=== PATIENT | male | born 1955 | race Caucasian/White ===

== ENCOUNTER 2016-07-30 22:10 | Emergency (ER) | payer BC ==
[~2016-07-30] VITALS: Ht 188 cm; Wt 138.6 kg
[~2016-07-30 22:10] MED LIST: ANDROGEL5 GM TD; Ascorbic Acid,Ester- PO; COUMADIN,JANTOVE1 MG PO; FEOSOL325 MG PO; FOLVITE1 MG PO; LIDODERM 5% P1 PATCH TP; OXY IR; OXYCONTIN10 MG PO; Prozac PO; THERAGRAN1 TABLET PO; Tylenol Regular Stre PO
[2016-07-30] MEDS ORDERED: OXYCODONE HCL10 MG PO (23:33)
[2016-07-30 23:42] VITALS: BP 134/75
== END 2016-07-30 23:43 | disposition home or self-care (01) ==
LOC: EME 22:10
DX: S20.211A Contusion of right front wall of thorax, initial encounter (principal); W10.1XXA Fall (on)(from) sidewalk curb, initial encounter; Y92.480 Sidewalk as the place of occurrence of the external cause; J45.909 Unspecified asthma, uncomplicated; E11.9 Type 2 diabetes mellitus without complications; I10 Essential (primary) hypertension; Z96.651 Presence of right artificial knee joint; F17.200 Nicotine dependence, unspecified, uncomplicated
CPT/HCPCS: 71101; 93005; 99281; 99283

== ENCOUNTER 2016-11-13 18:16 | Inpatient (IN) | payer BC ==
[~2016-11-13] VITALS: Ht 188 cm; Wt 137.1 kg
[~2016-11-13 18:16] MED LIST changes: +OXYCODONE HCL10 MG PO
[2016-11-13 18:51] LABS: HEMATOCRIT 42.9 % (38.0-50.0); MCHC 34.7 G/DL (30.0-36.0); MCV 92.3 FL (86-99); MEAN PLAT.VOLUME 10.3 uM^3 (9.0-12.4); PLATELET COUNT 280 K/uL (156-360); RBC DIS.WIDTH-CV 12.2 % (11.8-14.6); RED BLOOD COUNT 4.65 M/uL (4.00-5.50); WHITE BLOOD COUNT 12.7 K/uL (4.1-10.2)
[2016-11-13 19:05] LABS: CHLORIDE 100 mEq/L (99-109); POTASSIUM 4.5 mEq/L (3.7-5.4); SODIUM 134 mEq/L (136-147)
[2016-11-13 19:08] LABS: ANION GAP 14 MEQ/L (2-14)
[2016-11-13 19:10] LABS: GFR ESTIMATE (CALCULATED) 51 mL/min/
[2016-11-13 19:11] LABS: UREA NITROGEN (BUN) 16 mg/dL (9-23)
[2016-11-13 19:15] LABS: TROP-I INTERPRETATION NEGATIVE; TROPONIN-I 0.02 ng/mL (0.0-0.30)
[2016-11-13 19:17] LABS: GLUCOSE 615 mg/dL (70-99)
[2016-11-13] MEDS ORDERED: MORPHINE SULFAT30 M2 PO (21:01)
[2016-11-13] MEDS ORDERED: LAMICTAL200 MG PO (21:02)
[2016-11-13] MEDS ORDERED: METOPROLOL SUCC25 MG PO (21:02)
[2016-11-13] MEDS ORDERED: PERCOCET 10/1 TABLET PO (21:02)
[2016-11-13 21:41] LABS: POINT-OF-CARE METER ID UU13113747
[2016-11-13 22:48] LABS: TOTAL BILIRUBIN 0.4 mg/dL (0.0-1.0)
[2016-11-13 22:49] LABS: ALKALINE PHOSPHATASE 84 IU/L (3-129)
[2016-11-13 22:51] LABS: DIRECT BILIRUBIN 0.1 mg/dL (0.0-0.3)
[2016-11-13 22:52] LABS: LIPASE 85 U/L (1.0-51.0)
[2016-11-14 00:47] VITALS: BP 145/73; BP 147/83
[2016-11-14 02:07] LABS: TROP-I INTERPRETATION POSITIVE
[2016-11-14 02:08] LABS: TROPONIN-I 2.66 ng/mL (0.0-0.30)
[2016-11-14 03:13] LABS: PROTHROMBIN TIME 10.7 SEC (10.2-12.9)
[2016-11-14 03:16] LABS: PTT 28.1 SEC (25-37)
[2016-11-14 07:17] LABS: MCH 33.3 PG (29.0-34.0); MCHC 35.1 G/DL (30.0-36.0); MCV 94.7 FL (86-99); MEAN PLAT.VOLUME 10.3 uM^3 (9.0-12.4); PLATELET COUNT 235 K/uL (156-360); RBC DIS.WIDTH-CV 12.6 % (11.8-14.6); RBC DIS.WIDTH-SD 43.6 % (39-53); RED BLOOD COUNT 4.12 M/uL (4.00-5.50); WHITE BLOOD COUNT 12.9 K/uL (4.1-10.2)
[2016-11-14 07:40] VITALS: BP 124/64
[2016-11-14 07:47] LABS: ANION GAP 5 MEQ/L (2-14); CHLORIDE 106 MEQ/L (99-109); GFR ESTIMATE (CALCULATED) > 59 mL/min/; HDL CHOLESTEROL 25 MG/DL (Desirable>=40); LDL CHOLESTEROL 115 mg/dL (Desirable<100); NON-HDL CHOLESTEROL 153 mg/dL (Desirable<160); POTASSIUM 4.4 MEQ/L (3.7-5.4); SAMPLE HEMOLYSIS CHECK 0; SAMPLE ICTERIC CHECK 0; SAMPLE LIPEMIA CHECK 0; SODIUM 137 MEQ/L (136-147); TOTAL CHOLESTEROL 178 mg/dL (Desirable<200); TRIGLYCERIDES 191 MG/DL (Normal: <150); UREA NITROGEN (BUN) 16 mg/dL (9-23)
[2016-11-14 07:51] LABS: POINT-OF-CARE METER ID UU14174216; POINT-OF-CARE USER ID ENVKC36
[2016-11-14 07:52] LABS: GLUCOSE 290 mg/dL (70-99)
[2016-11-14 07:58] LABS: TROP-I INTERPRETATION POSITIVE; TROPONIN-I 7.28 ng/mL (0.0-0.30)
[2016-11-14 08:25] LABS: Estimated Average Glucose 260 mg/dL (70-123); HEMOGLOBIN A1c (GLYCOHEMOGLOB) 10.7 % HGB (Below 5.7)
[2016-11-14 08:42] LABS: ADD MIUA? NO; BILIRUBIN NEGATIVE; BLOOD NEGATIVE; COLOR YELLOW ((YELLOW)); GLUCOSE (STRIP) >=500; KETONES NEGATIVE; LEUKOCYTES NEGATIVE; NITRITE NEGATIVE; PROTEIN (STRIP) NEGATIVE; SPECIFIC GRAVITY 1.035 (1.000-1.030); UROBILINOGEN 0.2 MG/DL (0.2-1.0)
== END 2016-11-14 11:20 | disposition left against medical advice (07) | DRG 281 ==
LOC: EME 18:16 → 4EAST 21:47 → EDOF 21:47 → ENRESERV 21:48 → 4EAST 11-14 00:36
PROVIDERS: Emergency Medicine; Hospitalist
DX: I21.4 Non-ST elevation (NSTEMI) myocardial infarction (principal); N17.9 Acute kidney failure, unspecified; E11.65 Type 2 diabetes mellitus with hyperglycemia; E87.1 Hypo-osmolality and hyponatremia; F11.20 Opioid dependence, uncomplicated; E86.0 Dehydration; R00.0 Tachycardia, unspecified; G47.33 Obstructive sleep apnea (adult) (pediatric); I10 Essential (primary) hypertension; E78.5 Hyperlipidemia, unspecified; G89.4 Chronic pain syndrome; J45.909 Unspecified asthma, uncomplicated; K42.9 Umbilical hernia without obstruction or gangrene; F32.9 Major depressive disorder, single episode, unspecified; F17.210 Nicotine dependence, cigarettes, uncomplicated; Z96.651 Presence of right artificial knee joint; E66.01 Morbid (severe) obesity due to excess calories; Z68.38 Body mass index [BMI] 38.0-38.9, adult; Z23 Encounter for immunization; Z91.14 Patient's other noncompliance with medication regimen; Z91.19 Patient's noncompliance with other medical treatment and regimen; Z82.49 Family history of ischemic heart disease and other diseases of the circulatory system
CPT/HCPCS: 71020; 80048; 80061; 80076; 81003; 82948; 83036; 83690; 84484; 85027; 85610; 85730; 90686; 93005; 99281; 99284; J1644; J1815; J7030

== ENCOUNTER 2016-11-14 21:30 | Inpatient (IN) | payer BC ==
[~2016-11-14] VITALS: Ht 188 cm; Wt 137.7 kg
[~2016-11-14 21:30] MED LIST changes: +LAMICTAL200 MG PO; +METOPROLOL SUCC25 MG PO; +MORPHINE SULFAT30 M2 PO; +PERCOCET 10/1 TABLET PO
[2016-11-14 21:58] LABS: HEMATOCRIT 39.1 % (38.0-50.0); MCH 32.2 PG (29.0-34.0); MCV 91.8 FL (86-99); MEAN PLAT.VOLUME 9.9 uM^3 (9.0-12.4); PLATELET COUNT 230 K/uL (156-360); RBC DIS.WIDTH-CV 12.4 % (11.8-14.6); RBC DIS.WIDTH-SD 41.6 % (39-53); RED BLOOD COUNT 4.26 M/uL (4.00-5.50); WHITE BLOOD COUNT 11.6 K/uL (4.1-10.2)
[2016-11-14 22:10] LABS: POINT-OF-CARE METER ID UU13113747
[2016-11-14 22:19] LABS: TROP-I INTERPRETATION POSITIVE
[2016-11-14 22:21] LABS: TROPONIN-I 2.43 ng/mL (0.0-0.30)
[2016-11-14 22:28] LABS: CHLORIDE 105 mEq/L (99-109); POTASSIUM 3.9 mEq/L (3.7-5.4); SODIUM 136 mEq/L (136-147)
[2016-11-14 22:29] LABS: PROTHROMBIN TIME 10.8 SEC (10.2-12.9)
[2016-11-14 22:30] LABS: GLUCOSE 304 mg/dL (70-99)
[2016-11-14 22:32] LABS: ANION GAP 10 MEQ/L (2-14); PTT 27.8 SEC (25-37)
[2016-11-14 22:34] LABS: GFR ESTIMATE (CALCULATED) > 59 mL/min/
[2016-11-14 22:35] LABS: UREA NITROGEN (BUN) 15 mg/dL (9-23)
[2016-11-15 02:15] VITALS: BP 129/64
[2016-11-15 04:00] VITALS: BP 162/93
[2016-11-15 05:49] LABS: BASOPHIL COUNT 0.1 K/uL (0-0.1); EOSINOPHIL (%) 4.4 % (0-5); EOSINOPHIL COUNT 0.5 K/uL (0-0.3); HEMATOCRIT 37.6 % (38.0-50.0); IMMATURE GRANULOCYTE (%) 0.3 % (0.0-0.7); INSTRUMENT ABS NEUTROPHIL CT 4.7 K/uL; MCH 32.5 PG (29.0-34.0); MCV 95.4 FL (86-99); MEAN PLAT.VOLUME 10.4 uM^3 (9.0-12.4); MONOCYTE (%) 8.4 % (3-12); MONOCYTE COUNT 0.9 K/uL (0-0.8); NEUTROPHIL (%) 46.2 % (45-76); NEUTROPHIL COUNT 4.7 K/uL (1.8-6.4); PLATELET COUNT 214 K/uL (156-360); RBC DIS.WIDTH-CV 12.6 % (11.8-14.6); RED BLOOD COUNT 3.94 M/uL (4.00-5.50); WHITE BLOOD COUNT 10.1 K/uL (4.1-10.2)
[2016-11-15 06:18] LABS: TROP-I INTERPRETATION POSITIVE; TROPONIN-I 1.89 ng/mL (0.0-0.30)
[2016-11-15 07:04] VITALS: BP 134/67
[2016-11-15 08:05] LABS: POINT-OF-CARE METER ID UU14174216; POINT-OF-CARE USER ID ENVKC36
[2016-11-15 14:07] LABS: POINT-OF-CARE METER ID UU13113819
[2016-11-15 20:46] LABS: POINT-OF-CARE METER ID UU14174216
[2016-11-15 23:41] VITALS: BP 156/80
[2016-11-16 04:45] VITALS: BP 141/66
[2016-11-16 05:20] LABS: MCH 32.7 PG (29.0-34.0); MCHC 34.8 G/DL (30.0-36.0); MCV 94.1 FL (86-99); MEAN PLAT.VOLUME 10.5 uM^3 (9.0-12.4); PLATELET COUNT 223 K/uL (156-360); RBC DIS.WIDTH-CV 12.6 % (11.8-14.6); RBC DIS.WIDTH-SD 43.2 % (39-53); RED BLOOD COUNT 4.25 M/uL (4.00-5.50)
[2016-11-16 05:45] LABS: ANION GAP 8 MEQ/L (2-14); CHLORIDE 104 MEQ/L (99-109); GFR ESTIMATE (CALCULATED) > 59 mL/min/; GLUCOSE 233 mg/dL (70-99); POTASSIUM 3.9 MEQ/L (3.7-5.4); SAMPLE HEMOLYSIS CHECK 0; SAMPLE ICTERIC CHECK 0; SAMPLE LIPEMIA CHECK 0; SODIUM 138 MEQ/L (136-147); UREA NITROGEN (BUN) 11 mg/dL (9-23)
[2016-11-16 07:46] LABS: POINT-OF-CARE METER ID UU13113698
[2016-11-16 08:20] VITALS: BP 164/77
[2016-11-16 11:17] LABS: POINT-OF-CARE METER ID UU13113698
[2016-11-16 11:32] VITALS: BP 138/65
[2016-11-16] MEDS ORDERED: NITROSTAT0.4 MG SL (12:32)
[2016-11-16] MEDS ORDERED: METOPROLOL SUCC25 MG PO (12:32)
[2016-11-16] MEDS ORDERED: ATORVASTATIN CA40 MG PO (12:32)
[2016-11-16] MEDS ORDERED: LISINOPRIL10 MG PO (12:32)
[2016-11-16] MEDS ORDERED: METFORMIN HCL500 MG PO (12:32)
[2016-11-16] MEDS ORDERED: PIOGLITAZONE HC15 MG PO (12:32)
[2016-11-16] MEDS ORDERED: ASPIR-LOW81 MG PO (12:32)
[2016-11-16] MEDS ORDERED: BRILINTA90 MG PO (12:32)
[2016-11-16] MEDS ORDERED: NICOTINE PATCH1 EAC2 TD ×2 (12:32→14:12)
== END 2016-11-16 15:28 | disposition home or self-care (01) | DRG 247 ==
LOC: EME 21:30 → 4EAST 11-15 00:18 → EDOF 11-15 00:18 → ENRESERV 11-15 00:19 → 4EAST 11-15 02:08
PROVIDERS: Emergency Medicine; Hospitalist
DX: I21.4 Non-ST elevation (NSTEMI) myocardial infarction (principal); I25.10 Atherosclerotic heart disease of native coronary artery without angina pectoris; E11.65 Type 2 diabetes mellitus with hyperglycemia; G47.33 Obstructive sleep apnea (adult) (pediatric); E78.5 Hyperlipidemia, unspecified; E66.9 Obesity, unspecified; G89.4 Chronic pain syndrome; F17.200 Nicotine dependence, unspecified, uncomplicated; I10 Essential (primary) hypertension; J45.909 Unspecified asthma, uncomplicated; F32.9 Major depressive disorder, single episode, unspecified; F41.9 Anxiety disorder, unspecified; Z96.651 Presence of right artificial knee joint; Z68.39 Body mass index [BMI] 39.0-39.9, adult; Z91.19 Patient's noncompliance with other medical treatment and regimen; Z82.49 Family history of ischemic heart disease and other diseases of the circulatory system; Z91.14 Patient's other noncompliance with medication regimen
CPT/HCPCS: 80048; 80048 91; 82948; 84484; 85025; 85027; 85347; 85610; 85730; 93005; 93306; 99281; 99285; C1725; C1769; C1874; C1887; J1644; J1815; J2250; J3010; J7030

== ENCOUNTER 2017-02-23 19:37 | Inpatient (IN) | payer BC ==
[~2017-02-23] VITALS: Ht 188 cm; Wt 135.4 kg
[~2017-02-23 19:37] MED LIST changes: +ASPIR-LOW81 MG PO; +ATORVASTATIN CA40 MG PO; +BRILINTA90 MG PO; +LISINOPRIL10 MG PO; +METFORMIN HCL500 MG PO; +NICOTINE PATCH1 EAC2 TD; +NITROSTAT0.4 MG SL; +PIOGLITAZONE HC15 MG PO
[2017-02-23 20:10] LABS: HEMATOCRIT 39.4 % (38.0-50.0); HEMOGLOBIN 13.2 G/DL (12.5-16.6); MCH 31.9 PG (29.0-34.0); MCHC 33.5 G/DL (30.0-36.0); MCV 95.2 FL (86-99); PLATELET COUNT 345 K/uL (156-360); RBC DIS.WIDTH-CV 13.1 % (11.8-14.6); RBC DIS.WIDTH-SD 46.2 % (39-53); RED BLOOD COUNT 4.14 M/uL (4.00-5.50)
[2017-02-23 20:19] LABS: CHLORIDE 106 mEq/L (99-109); POTASSIUM 4.5 mEq/L (3.7-5.4); SODIUM 138 mEq/L (136-147)
[2017-02-23 20:21] LABS: GLUCOSE 148 mg/dL (70-99)
[2017-02-23 20:24] LABS: CREATININE 1.6 mg/dL (0.6-1.3); GFR ESTIMATE (CALCULATED) 47 mL/min/ (58.99-99999); SERUM ETHYL ALCOHOL < 10 mg/dL
[2017-02-23 20:25] LABS: UREA NITROGEN (BUN) 28 mg/dL (9-23)
[2017-02-23 21:36] LABS: COCAINE NEGATIVE (150 ng/mL); METHAMPHETAMINE NEGATIVE (500 ng/mL); PHENCYCLIDINE NEGATIVE (25 ng/mL); THC CANNABINOIDS NEGATIVE (50 ng/mL)
[2017-02-23 21:37] LABS: AMPHETAMINE NEGATIVE (500 ng/mL); BARBITURATES NEGATIVE (200 ng/mL); BENZODIAZEPINES NEGATIVE (150 ng/mL); BUPRENORPHINE NEGATIVE (10 ng/mL); METHADONE NEGATIVE (200 ng/mL); OPIATES (MORPHINE) PRESUMPTIVE POSITIVE (100 ng/mL); OXYCODONE PRESUMPTIVE POSITIVE (100 ng/mL); PROPOXYPHENE NEGATIVE (300 ng/mL); TRICYCLIC ANTIDEPRESSANTS NEGATIVE (300 ng/mL)
[2017-02-23 21:55] LABS: APPEARANCE CLEAR ((CLEAR)); COLOR YELLOW ((YELLOW)); SPECIFIC GRAVITY 1.027 (1.000-1.030)
[2017-02-23 21:56] LABS: BILIRUBIN SMALL; BLOOD NEGATIVE; GLUCOSE (STRIP) NEGATIVE; KETONES NEGATIVE; LEUKOCYTES NEGATIVE; NITRITE NEGATIVE; PROTEIN (STRIP) TRACE; UCUL ADDED? NO
[2017-02-23 22:21] LABS: ACETAMINOPHEN (TYLENOL) < 10 MCG/ML (10-30); SALICYLATE < 3.0 MG/DL (15-30)
[2017-02-24 14:11] VITALS: BP 130/64
[2017-02-24 15:51] VITALS: BP 120/56
[2017-02-25 07:08] VITALS: BP 122/66
[2017-02-25] MEDS ORDERED: PROZAC20 MG PO (10:05)
[2017-02-25 15:59] VITALS: BP 133/68
[2017-02-26 07:14] VITALS: BP 126/59
[2017-02-26] MEDS ORDERED: RISPERIDONE1 MG PO (11:11)
[2017-02-26] MEDS ORDERED: PROZAC20 MG PO (11:11)
[2017-02-26] MEDS ORDERED: PROZAC10 MG PO (11:11)
== END 2017-02-26 12:39 | disposition home or self-care (01) | DRG 883 ==
LOC: EME 19:37 → EDOF 02-24 11:36 → 1WEST 02-24 11:36 → ENRESERV 02-24 13:10 → 1WEST 02-24 13:16
PROVIDERS: Psychiatry & Neurology Psychiatry
DX: F63.81 Intermittent explosive disorder (principal); R45.851 Suicidal ideations; F32.9 Major depressive disorder, single episode, unspecified; F22 Delusional disorders; F41.9 Anxiety disorder, unspecified; G89.29 Other chronic pain; N28.9 Disorder of kidney and ureter, unspecified; E11.9 Type 2 diabetes mellitus without complications; I10 Essential (primary) hypertension; J45.909 Unspecified asthma, uncomplicated; F17.200 Nicotine dependence, unspecified, uncomplicated; I25.2 Old myocardial infarction; Z96.651 Presence of right artificial knee joint
CPT/HCPCS: 80048; 81003; 82948; 84443; 84999; 85027; 90839; 99281; 99285; G0480; J1630; J2060